=== PATIENT | female | born 1955 | race Two or more races ===

== ENCOUNTER 2021-09-19 15:47 | Emergency (ER) | payer MEDICARE, OTHER ==
[~2021-09-19] VITALS: Ht 154.9 cm; Wt 88.9 kg
--- NOTE | 2021-09-19 16:16 | NUR ---
BIB [id number] FOR POSTERIOR HEAD LACERATION S/P SYNCOPAL EPISODE WHILE IN LINE FOR COVID SWAB. ADMITS DIZZINESS A PRIOR TO SYNCOPE, LOSS OF CONSCIOUSNESS. REPORTS SORE THROAT. AAOX4. BREATHING EVEN AND UNLABORED. AWAITING MD FOR EVAL
[2021-09-19] MEDS ORDERED: IV NS 0.9% 1,000 ML BAG IV ONE (17:00)
--- NOTE | 2021-09-19 17:02 | NUR ---
PT LAYING IN BED COMFORTABLY, NO ACUTE CHANGES, VS STABLE
--- NOTE | 2021-09-19 17:02 | NUR ---
PT LAYING IN BED COMFORTABLY, NO ACUTE CHANGES, VS STABLE
[2021-09-19 17:22] LABS: BASOPHILS % (AUTO) 0.2 % (0.0-2.0); EOSINOPHILS % (AUTO) 0.3 % (0.0-6.0); HEMATOCRIT 43 % (33-45); HEMOGLOBIN 14.4 g/dL (11.5-14.8); LYMPHOCYTES # (AUTO) 1.2 K/uL (0.8-4.8); LYMPHOCYTES % (AUTO) 21.7 % (20.0-44.0); MEAN CORPUSCULAR HGB CONC 34 g/dl (31.0-36.0); MEAN CORPUSCULAR VOLUME 87 fL (82-100); MONOCYTES # (AUTO) 0.4 K/uL (0.1-1.30); MONOCYTES % (AUTO) 7.9 % (2.0-12.0); NEUTROPHILS # (AUTO) 3.9 K/uL (1.8-8.9); NEUTROPHILS % (AUTO) 69.9 % (43.0-81.0); PLATELET COUNT (AUTO) 267 K/uL (150-450); RED BLOOD CELL COUNT(AUTO) 4.93 MIL/uL (4.0-5.2); WHITE BLOOD COUNT (AUTO) 5.5 K/uL (4.3-11.0)
[2021-09-19 17:38] LABS: CALCIUM, SERUM 8.4 mg/dL (8.5-10.1); CARBON DIOXIDE 25 mmol/L (21-32); CHLORIDE 98 mmol/L (98-107); CREATININE 0.9 mg/dL (0.6-1.3); GLUCOSE 144 mg/dL (74-106); SODIUM SERUM 134 mmol/L (136-145); UREA NITROGEN, BLOOD 12 mg/dL (7-18)
[2021-09-19] MEDS ORDERED: PRAV40TA3 PO (17:47)
[2021-09-19] MEDS ORDERED: METF-440 PO (17:47)
[2021-09-19] MEDS ORDERED: SITA100T PO (17:47)
[2021-09-19] MEDS ORDERED: ESCI10TA PO (17:47)
[2021-09-19] MEDS ORDERED: ICOS1CAP PO (17:47)
[2021-09-19] MEDS ORDERED: LEVO125T97 PO (17:47)
--- NOTE | 2021-09-19 18:19 | NUR ---
PT RETURNED FROM CT
--- NOTE | 2021-09-19 18:19 | NUR ---
PT RETURNED FROM CT
--- NOTE | 2021-09-19 19:00 | NUR ---
MANAGER MOTOR AT BEDSIDE
--- NOTE | 2021-09-19 19:00 | NUR ---
WRINGER OPERATOR AT BEDSIDE
--- NOTE | 2021-09-19 19:04 | NUR ---
COVID SAMPLE OBTAINED AND SENT TO LAB
--- NOTE | 2021-09-19 19:04 | NUR ---
COVID SAMPLE OBTAINED AND SENT TO LAB
--- NOTE | 2021-09-19 19:05 | NUR ---
IV removed. Catheter intact and site benign. Pressure and 4x4 applied to site. No bleeding noted.
--- NOTE | 2021-09-19 19:05 | NUR ---
Patient discharged to home in stable condition. Written and verbal after care instructions given. Patient verbalizes understanding of instruction.
--- NOTE | 2021-09-19 19:05 | NUR ---
Patient discharged to home in stable condition. Written and verbal after care instructions given. Patient verbalizes understanding of instruction.
--- NOTE | 2021-09-19 19:05 | NUR ---
IV removed. Catheter intact and site benign. Pressure and 4x4 applied to site. No bleeding noted.
[2021-09-19 19:15] VITALS: BP 133/87
== END 2021-09-19 19:13 | disposition home or self-care (01) ==
LOC: EDSEX 15:47 → ER 16:31
DX: R55 Syncope and collapse (principal); U07.1 COVID-19; E07.9 Disorder of thyroid, unspecified; Z79.899 Other long term (current) drug therapy; Z79.84 Long term (current) use of oral hypoglycemic drugs
CPT/HCPCS: 36415; 70450; 71045; 72125; 80048; 84484; 85025; 87426; 96360; 99285; J7030; C9803

== ENCOUNTER 2021-09-21 00:13 | Emergency (ER) | payer MEDICARE, OTHER ==
[~2021-09-21] VITALS: Ht 154.9 cm; Wt 88.9 kg
[~2021-09-21 00:13] MED LIST: ESCI10TA PO; ICOS1CAP PO; LEVO125T97 PO; METF-440 PO; PRAV40TA3 PO; SITA100T PO
--- NOTE | 2021-09-21 00:27 | NUR ---
PATIENT BIBRA [id number] FROM HOME C/O WEAKNESS AND FEELING SICK X 1 DAY, PT TESTED COVID + YESTERDAY. PATIENT IS A/O X 4, RR EVEN AND UNLABORED, NO SOB NOTED. PATIENT CONNECTED TO CARDIAC AND POX MONITOR.
[2021-09-21] MEDS ORDERED: ACETAMINOPHEN ES 500 MG TABLET ONE (00:56)
--- NOTE | 2021-09-21 00:58 | NUR ---
SON [phone]
[2021-09-21] MEDS ORDERED: IV NS 0.9% 1,000 ML IV ONE (01:00)
[2021-09-21] MEDS ORDERED: ACETAMINOPHEN ES 500 MG TABLET PO ONE (01:00)
--- NOTE | 2021-09-21 01:15 | NUR ---
R HAND #22G S/L; PATENT AND INTACT. BLOOD COLLECTED & GIVEN TO LAB
--- NOTE | 2021-09-21 01:17 | NUR ---
UPDATED SON ART ON PT'S STATUS
--- NOTE | 2021-09-21 01:18 | NUR ---
NOZZLE AND SLEEVE WORKER AT PT'S BEDSIDE
[2021-09-21 01:26] LABS: BASOPHILS % (AUTO) 0.8 % (0.0-2.0); EOSINOPHILS % (AUTO) 0.5 % (0.0-6.0); HEMATOCRIT 46 % (33-45); HEMOGLOBIN 15.4 g/dL (11.5-14.8); LYMPHOCYTES # (AUTO) 1.6 K/uL (0.8-4.8); MEAN CORPUSCULAR HGB CONC 34 g/dl (31.0-36.0); MEAN CORPUSCULAR VOLUME 86 fL (82-100); MONOCYTES # (AUTO) 0.4 K/uL (0.1-1.30); MONOCYTES % (AUTO) 9.3 % (2.0-12.0); NEUTROPHILS # (AUTO) 2.3 K/uL (1.8-8.9); NEUTROPHILS % (AUTO) 52.4 % (43.0-81.0); PLATELET COUNT (AUTO) 288 K/uL (150-450); RED BLOOD CELL COUNT(AUTO) 5.31 MIL/uL (4.0-5.2); WHITE BLOOD COUNT (AUTO) 4.4 K/uL (4.3-11.0)
--- NOTE | 2021-09-21 01:31 | NUR ---
URINE COLLECTED AND SENT TO LAB
[2021-09-21 01:42] LABS: CALCIUM, SERUM 8.7 mg/dL (8.5-10.1); CARBON DIOXIDE 25 mmol/L (21-32); CHLORIDE 100 mmol/L (98-107); CREATININE 0.8 mg/dL (0.6-1.3); GLUCOSE 145 mg/dL (74-106); POTASSIUM 3.5 mmol/L (3.5-5.1); SODIUM SERUM 136 mmol/L (136-145); UREA NITROGEN, BLOOD 9 mg/dL (7-18)
[2021-09-21 01:58] LABS: ALANINE AMINOTRANSFERASE 32 U/L (12-78); ALBUMIN 3.6 g/dL (3.4-5.0); ALKALINE PHOSPHATASE 68 U/L (46-116); ASPARTATE AMINOTRANSFERASE 40 U/L (15-37); BILIRUBIN,TOTAL 0.3 mg/dL (0.2-1.0); MAGNESIUM 2.2 mg/dL (1.8-2.4)
[2021-09-21 02:51] LABS: BILIRUBIN,URINE NEGATIVE (NEGATIVE); COLOR,URINE YELLOW (YELLOW); LEUKOCYTE ESTERASE ,URINE NEGATIVE (NEGATIVE); NITRITE, URINE POSITIVE (NEGATIVE); PROTEIN,URINE NEGATIVE (NEGATIVE); UGLUCOSE NEGATIVE (NEGATIVE)
[2021-09-21] MEDS ORDERED: ACET-2605 PO (03:59)
--- NOTE | 2021-09-21 04:25 | NUR ---
Patient discharged to home in stable condition. Written and verbal after care instructions given. Patient verbalizes understanding of instruction. PT ambulatory with a steady gait. DC WITH SON
[2021-09-21 04:26] VITALS: BP 149/81
--- NOTE | 2021-09-21 04:26 | NUR ---
Patient discharged to home in stable condition. Written and verbal after care instructions given. Patient verbalizes understanding of instruction.
[2021-09-21 09:13] LABS: BACTERIA,URINE 4+ /HPF (None Seen); RBC,URINE 0-2 /HPF (0-2); SQUAMOUS EPITHELIAL CELL,UR Few /HPF (None Seen); WBC,URINE 0-2 /HPF (0-3)
== END 2021-09-21 04:30 | disposition home or self-care (01) ==
LOC: ER 00:20
DX: U07.1 COVID-19 (principal); R53.1 Weakness; E03.9 Hypothyroidism, unspecified; Z79.899 Other long term (current) drug therapy
CPT/HCPCS: 36415; 71045; 80053; 81001; 83735; 84484; 85025; 87077; 87086; 87186; 93005; 96360; 99285; J7030